=== PATIENT | male | born 1960 | race Caucasian/White ===

== ENCOUNTER 2017-10-10 02:40 | Day surgery (SDC) | payer MEDICARE ==
[~2017-10-10] VITALS: Ht 170.2 cm; Wt 83.0 kg
[~2017-10-10 02:40] MED LIST: ALBU90OI INH; ALBU90OI6 INH; ASPI81CH PO; BUDE10.22 INH; CYAN500 PO; Calcium 600 W/1 EAC1 PO; DIGO.125 PO; DIGO.25 PO; DULERA 100 MCG/13 GM INH; DULO30 PO; FOLATE PO; FOLI1 PO; GABA600 PO; METO50ER PO; Norvasc5 MG PO; QVAR7.3 G1 IH; SIMV10 PO; Saw Palmetto450 MG PO; TRAM50 PO
[2017-10-10] MEDS ORDERED: PRAM.125 PO (06:43)
== END 2017-10-10 11:00 | disposition home or self-care (01) ==
LOC: MHTC 02:40
PROC: 4A023N7 Measurement of Cardiac Sampling and Pressure, Left Heart, Percutaneous Approach (ICD-10-PCS; principal; 2017-10-10)
PROC: B211YZZ Fluoroscopy of Multiple Coronary Arteries using Other Contrast (ICD-10-PCS; principal; 2017-10-10)
DX: R07.9 Chest pain, unspecified (principal); R93.1 Abnormal findings on diagnostic imaging of heart and coronary circulation; R06.02 Shortness of breath; I10 Essential (primary) hypertension; E78.5 Hyperlipidemia, unspecified; J45.909 Unspecified asthma, uncomplicated; R00.2 Palpitations; Z87.891 Personal history of nicotine dependence; E78.00 Pure hypercholesterolemia, unspecified
CPT/HCPCS: 93458; 99152; C1769; C1894; J0690; J1644; J2250; J3010; J7030; Q9967